=== PATIENT | female | born 1995 | race American Indian/Alaskan Native ===

== ENCOUNTER 2018-04-13 15:49 | Emergency (ER) | payer BC ==
[2018-04-13] MEDS ORDERED: BANOPHEN PO ONE (19:13)
[2018-04-13] MEDS ORDERED: ZOFRAN ODT PO ONE (19:13)
--- NOTE | 2018-04-13 19:58 | Emergency Department Report ---
ED Medical Clearance HPI - General Chief complaint: Medical Clearance Stated complaint: FEELING TOO ALERT.D/C'D PHENTREMINE Time Seen by Provider: 04/13/18 19:11 Source: patient Mode of arrival: Ambulatory - History of Present Illness Initial comments: There is a 22-year-old Afro-Indian female been on phentermine for 6 weeks prescribed by PCP Allyson moyer so she stopped 2 days ago abruptly necessarily joão patient denies substance denies shortness of breath no palpitations no shortness of breath no SI no HI no nausea vomiting. Patient has not taken Benadryl has not call PCP states she was tired of taking diet pills Onset/Timin -: Sudden, days(s) Reason for Medical Clearance: other Place: home Alledged Intoxication: No Compliant with Home Medications: No Associated Symptoms: other ("jittery stopped taking phentermine") Treatments Prior to Arrival: none Home medications: Previous Rx's Medication Instructions Recorded Last Taken Type diphenhydrAMINE [Benadryl CAP] 25 mg PO Q8HR PRN #30 capsule 04/13/18 Unknown Rx Allergies/Adverse reactions: Allergies Allergy/AdvReac Type Severity Reaction Status Date / Time No Known Allergies Allergy Unverified 04/13/18 16:23 ED Review of Systems ROS: Stated complaint: FEELING TOO ALERT.D/C'D PHENTREMINE Other details as noted in HPI Constitutional: other (jitters). denies: chills, fever Eyes: denies: eye pain, eye discharge, vision change ENT: denies: ear pain, throat pain Respiratory: denies: cough, shortness of breath, wheezing Cardiovascular: denies: chest pain, palpitations Endocrine: no symptoms reported Gastrointestinal: denies: abdominal pain, nausea, diarrhea Genitourinary: denies: urgency, dysuria, discharge Musculoskeletal: denies: back pain, joint swelling, arthralgia Skin: as per HPI Neurological: denies: headache, weakness, paresthesias Psychiatric: denies: anxiety, depression, auditory hallucinations, visual hallucinations, homicidal thoughts, suicidal thoughts Hematological/Lymphatic: denies: easy bleeding, easy bruising ED Past Medical Hx - Past Medical History Previous Medical History?: No - Surgical History Past Surgical History?: No - Social History Smoking Status: Never Smoker Substance Use Type: None - Medications Home Medications: Home Medications Medication Instructions Recorded Confirmed Last Taken Type diphenhydrAMINE [Benadryl CAP] 25 mg PO Q8HR PRN #30 capsule 04/13/18 Unknown Rx ED Physical Exam - General Limitations: No Limitations General appearance: alert, in no apparent distress, anxious - Head Head exam: Present: atraumatic, normocephalic - Eye Eye exam: Present: normal appearance - ENT ENT exam: Present: mucous membranes moist - Neck Neck exam: Present: normal inspection - Respiratory Respiratory exam: Present: normal lung sounds bilaterally. Absent: respiratory distress - Cardiovascular Cardiovascular Exam: Present: regular rate, normal rhythm. Absent: systolic murmur, diastolic murmur, rubs, gallop - GI/Abdominal GI/Abdominal exam: Present: soft, normal bowel sounds - Rectal Rectal exam: Present: deferred - Extremities Exam Extremities exam: Present: normal inspection - Back Exam Back exam: Present: normal inspection - Neurological Exam Neurological exam: Present: alert, oriented X3, CN II-XII intact, normal gait, reflexes normal - Psychiatric Psychiatric exam: Present: normal affect, normal mood - Skin Skin exam: Present: warm, dry, intact, normal color. Absent: rash ED Course Vital Signs 04/13/18 16:23 Temperature 98.5 F Pulse Rate 100 H Respiratory 20 Rate Blood Pressure 111/78 O2 Sat by Pulse 99 Oximetry ED Medical Decision Making - Lab Data Result diagrams: 04/13/18 19:25 - Medical Decision Making anxiety, allergic reaction , medication withdrawal, all symptoms resolved with benadryl po . plan dc to home in stable condition with rx for benadryl, follow with with pcp tomorrow for eloy dosing regmine, pt verbalized agreement and understanding of same, labs are pending however patients advises that she has to pick baby and cannot wait any longer will call patient if any abnormal labs. pt for dc to home in stable condition at this time. ED Disposition Clinical Impression: Anxiety Disposition: DC-01 TO HOME OR SELFCARE Is pt being admited?: No Does the pt Need Aspirin: No Condition: Good Instructions: Phentermine (By mouth) Prescriptions: diphenhydrAMINE [Benadryl CAP] 25 mg PO Q8HR PRN #30 capsule PRN Reason: Itching Referrals: PRIMARY CARE,MD [Primary Care Provider] - 3-5 Days Forms: Work/School Release Form(ED) Time of Disposition: :35
[2018-04-13 20:06] LABS: Hematocrit 40.2 % (30.3-42.9); Mean Corpuscular HGB Conc 32 % (30-34); Mean Corpuscular Hemoglobin 29 pg (28-32); Mean Corpuscular Volume 89 fl (79-97); Platelet Count 318 K/mm3 (140-440); Red Blood Count 4.53 M/mm3 (3.65-5.03); Red Cell Distribution Width 14.3 % (13.2-15.2)
[2018-04-13 20:31] LABS: Bilirubin,Urine NEG (Negative); Blood,Urine NEG (Negative); Color,Urine Yellow (Yellow); Protein,Urine <15 mg/dL mg/dL (Negative); Urobilinogen,Urine < 2.0 mg/dL (<2.0); WBC,Urine < 1.0 /HPF (0.0-6.0)
[2018-04-13 20:33] LABS: Alanine Aminotransferase 11 units/L (7-56); Albumin 4.6 g/dL (3.9-5); BUN/Creatinine Ratio 7; Blood Urea Nitrogen 5 mg/dL (7-17); Calcium 9.8 mg/dL (8.4-10.2); Hemolysis Index 17
[2018-04-13 20:39] LABS: HCG Qualitative,Urine Negative (Negative)
[2018-04-13 21:02] LABS: Band Neutrophils # (Manual) 0.1 K/mm3; Basophils % (Manual) 0 % (0.0-1.8); Total Cells Counted 100
[2018-04-13 21:03] LABS: RBC Morphology Normal
[2018-04-13 23:56] VITALS: BP 114/80
== END 2018-04-13 20:37 | disposition home or self-care (01) ==
LOC: ED 15:49
DX: F41.8 Other specified anxiety disorders (principal)
CPT/HCPCS: 36415; 80053; 81001; 81025; 85007; 85025; 99283; Q0162; Q0163

== ENCOUNTER 2018-04-13 23:17 | Emergency (ER) | payer BC ==
[2018-04-14 01:06] VITALS: BP 141/64
== END 2018-04-14 02:00 | disposition left against medical advice (07) ==
LOC: ED 23:17
DX: R42 Dizziness and giddiness (principal); Z53.21 Procedure and treatment not carried out due to patient leaving prior to being seen by health care provider
CPT/HCPCS: 93005; 93010